=== PATIENT | female | born 1975 | race Caucasian/White ===

== ENCOUNTER 2022-07-28 02:04 | Inpatient (IN) ==
--- NOTE | 2022-07-28 02:41 | Emergency Department Note ---
Impression & Plan Acute hyperkalemia ADMIT ED Provider Note HPI: The patient is a 47-year-old female with history of end-stage renal disease, currently on dialysis, presents the emergency department chief complaint of generalized illness, nausea, myalgias, states that her symptoms have been ongoing since earlier today. Patient states that she missed her dialysis session on Tuesday because they had trouble accessing her left upper extremity fistula. She states she has been receiving dialysis through this fistula for about the past 6 months. Patient states the fistula was created in [place]. She gets her dialysis here locally through [facility]. On arrival here to the ED the patient appears well on my initial assessment, she is hemodynamically stable, saturating well on room air, patient is afebrile on arrival. ROS: -General: Generalized weakness -MSK: Myalgias -GI: Nausea *10 point review systems was conducted and is otherwise negative unless stated above *Outpatient medications and allergy history reviewed PE: General: Alert HEENT: Normocephalic, trachea midline Eyes: Extraocular eye movement is intact, no scleral erythema Pulmonary: Clear to auscultation bilaterally, no wheezing Cardio: Regular rate and rhythm GI: Abdomen is soft, nontender : No suprapubic tenderness MSK: No evidence of trauma or malformation of the extremities, no edema, palpable thrill in the left upper extremity fistula Skin: No evidence of rash Neuro: Alert, no focal deficits Psychiatric: Cooperative corporate associate attorney: - An order was placed for continuous cardiac monitoring - Patient was noted to be in sinus rhythm with a rate of 65 EKG: Rate: 115 Rhythm: Sinus tachycardia Intervals: Within normal limits ST changes: No ST elevation Time: 0238 Interventions provided in ED: -Albuterol, insulin, dextrose, Veltassa, Lasix, IV fluid bolus, calcium gluconate US OTHER - HEMODIALYSIS ACCESS: There is a right upper arm brachial artery to cephalic vein dialysis fistula. The brachial artery is patent superior and inferior to the anastomosis with an tegrade low resistance flow. There is a cephalic vein fistula is patent with peak systolic velocities measuring 578 cm/s, 293 cm/s, 613 cm/s, 664 cm/s, and 302 cm/s. No thrombus. Probable moderate stenosis of the main draining vein approximately 1.5 cm from the anastomosis. Consider fistulogram when clinically feasible. Radiologist: Dylan Burton MD Study ready at 05:17 and initial results transmitted at 05:27 Medical Decision Making: Patient presented to the emergency department with a feeling of generalized weakness, nausea, myalgias. She states she was unable to get her dialysis session performed on Tuesday secondary to difficulty with her fistula site access. She is visiting from [place] and is getting dialysis arranged through [facility]. IV was established, patient was placed on casino attendant, lab work was obtained. Lab work shows multiple abnormalities consistent with the patient's end-stage renal disease including elevated creatinine at 13.46, anemia of 9.8, potassium resulted critically high at 9.4, EKG shows sinus rhythm. On my reassessment the patient is alert, she is resting comfortably in bed and she is hemodynamically stable. Heart rate is in the 70s on my reassessment. She d enies any chest pain or shortness of breath. She was initiated on hyperkalemia medications for correction including albuterol, calcium gluconate, insulin, dextrose, Lasix, Veltassa, and an IV fluid bolus. She states she does still make urine. I discussed the patient's case with on-call nephrology, Dr. Griffin, she is familiar with the patient. She states that they have had some difficulty acc essing her fistula several times throughout her stay here in the [facility], she states that they just recently started using her fistula prior to arrival here in [place] and therefore access has been tenuous at times. She is recommending placement of a temporary hemodialysis catheter and emergent arrangement of dialysis this morning once catheter is placed. I discussed placement of a temporary catheter with the patient, she is adamantly refusing this procedure. Patient states that they have accessed her fistula and she would prefer to be dialyzed through her fistula. I did explain to the patient that time is of the essence and that she does have a critical lab abnormality that can lead to an arrhythmia and . She expressed an understanding of this and stated that she had a complication when a catheter was placed in [place] that made her extremely ill secondary to hemorrhage and therefore she was adamant that she did not want to have to undergo this procedure again. She was explained again the risk of this as was her family at the bedside of should she go into an arrhythmia from hyperkalemia and she again expressed understanding. She states that she would like her fistula to be accessed and if this is unsuccessful then she would be in agreement to reconsider having a catheter placed. I did discuss this initially with the on- call ICU PA, Sonido Valverde, who was updated and aware of the plan. He did evaluate the patient at the bedside. He did discuss the patient's presentation with on-call ICU, Dr. Vazquez. I then discussed again with Dr. Griffin that the patient is refusing temporary hemodialysis catheter placement, she is aware, she is aware that now the plan will be for the fistula to be attempted for access and then if this fails the p atient will be in agreement for temporary hemodialysis catheter. Dr. Griffin request admission to the ICU so the patient can be dialyzed in the ICU and then if fistula cannot be accessed ICU staff can place a temporary hemodialysis catheter. I discussed all of the above with the on-call hospitalist for [facility], Dr. Holt, who was in agreement to admit the patient to the ICU for nephrology consultation, dialysis, and possibly hemodialysis catheter placement. Patient is in agreement to the above plan as is her family at the bedside and she was admitted in stable condition for further care. * CRITICAL CARE TIME: ( 65 ) minutes -Management of acute hyperkalemia requiring IV and oral medications for temporizing correction, discussion with subspecialty physicians including nephrology and medical staff for the intensive care unit, time spent at the be ide in discussion with the patient and family, interpretation of diagnostic studies, and arrangement of admission to the ICU Diagnosis: 1. Acute hyperkalemia 2. End-stage renal disease, on hemodialysis 3. Anemia 4. Uremia 5. Elevated creatinine 6. Hyponatremia, mild Disposition: Admission to ICU Maxi Pagan DO Emergency Medicine Past Med/Surg History Medical History (Updated 07/28/22 @ 07:00 by BETO Lockwood) ESRD (end stage renal disease) on dialysis Social History Smoking Status: Never smoker Hx Alcohol Use: No Hx Substance Use: No Preferred Language: Czech Communication Ability: Effective Blood Bank Worker Required: No Beliefs That Will Affect Care: None Current Living Situation: Spouse Feels Safe at Home: Yes Safety Concerns: Feels Safe At This Time Assistive Devices: Glasses Allergies Allergies Allergy/AdvReac Type Severity Reaction Status Date / Time No Known Allergies Allergy Unverified 07/28/22 02:33 Home Meds Home Medications Medication Instructions Recorded Confirmed Amlo-Denk 10 mg PO DIRECTED 07/28/22 07/28/22 Glycinorm 80 mg PO DIRECTED 07/28/22 07/28/22 Iron Tabs 200 mg PO DIRECTED 07/28/22 07/28/22 calcium carbonate 300 mg (750 mg) 300 mg PO DIRECTED PRN Gi Upset 07/28/22 07/28/22 chewable tablet (Tums) epoetin beta, methoxy peg 100 100 mcg subcut DIRECTED 07/28/22 07/28/22 mcg/0.3 mL injection syringe (Mircera) furosemide 40 mg tablet (Lasix) 40 mg PO DAILY 07/28/22 07/28/22 iron sucrose 100 mg iron/5 mL 100 mg IV DIRECTED 07/28/22 07/28/22 intravenous solution Results & Data (ED) Vital Signs Vital Signs - 24 hr 07/28/22 02:10 07/28/22 03:01 07/28/22 03:02 Temperature 36.5 C Temperature Source Temporal Artery Scan Pulse Rate 71 87 Pulse Rate [Apical] 87 Pulse Rate from SpO2 Sensor Pulse Rhythm Regular Pulse Rhythm [Apical] Regular Pulse Strength [Apical] Normal Respiratory Rate 20 18 18 Respiratory Effort / Characteristics Non-Labored Spontaneous Non-Labored Spontaneous Respiratory Depth Normal Normal Respiratory Pattern Regular Blood Pressure 137/79 Blood Pressure [Right Arm] 125/60 Blood Pressure Mean 98 Blood Pressure Mean [Right Arm] 81 Blood Pressure Position [Right Arm] Semi-fowlers Pulse Oximetry 98 96 98 Oxygen Delivery Method Room Air Room Air Room Air Oxygen Flow Rate Sepsis New/Unexplained Change in Mental Status N/A Sepsis Action Taken by Nursing No Action Required 07/28/22 05:19 07/28/22 05:00 07/28/22 05:07 Temperature Temperature Source Pulse Rate 56 L Pulse Rate [Apical] 115 H 115 H Pulse Rate from SpO2 Sensor Pulse Rhythm Pulse Rhythm [Apical] Regular Pulse Strength [Apical] Normal Respiratory Rate 20 18 24 Respiratory Effort / Characteristics Non-Labored Spontaneous Non-Labored Spontaneous Respiratory Depth Normal Respiratory Pattern Regular Blood Pressure Blood Pressure [Right Arm] 128/67 Blood Pressure Mean Blood Pressure Mean [Right Arm] 87 Blood Pressure Position [Right Arm] Semi-fowlers Pulse Oximetry 98 100 Oxygen Delivery Method Room Air Nebulizer Oxygen Flow Rate 7 Sepsis New/Unexplained Change in Mental Status Sepsis Action Taken by Nursing 07/28/22 05:30 07/28/22 05:41 07/28/22 05:41 Temperature Temperature Source Pulse Rate 56 L 116 H Pulse Rate [Apical] Pulse Rate from SpO2 Sensor 58 L Pulse Rhythm Pulse Rhythm [Apical] Pulse Strength [Apical] Respiratory Rate 19 17 Respiratory Effort / Characteristics Respiratory Depth Respiratory Pattern Blood Pressure 128/67 Blood Pressure [Right Arm] Blood Pressure Mean 87 Blood Pressure Mean [Right Arm] Blood Pressure Position [Right Arm] Pulse Oximetry 100 Oxygen Delivery Method Oxygen Flow Rate Sepsis New/Unexplained Change in Mental Status Sepsis Action Taken by Nursing 07/28/22 06:00 07/28/22 06:00 07/28/22 06:30 Temperature Temperature Source Pulse Rate 57 L Pulse Rate [Apical] Pulse Rate from SpO2 Sensor 59 L Pulse Rhythm Pulse Rhythm [Apical] Pulse Strength [Apical] Respiratory Rate 9 L Respiratory Effort / Characteristics Respiratory Depth Respiratory Pattern Blood Pressure 149/72 H 125/64 Blood Pressure [Right Arm] Blood Pressure Mean 97 84 Blood Pressure Mean [Right Arm] Blood Pressure Position [Right Arm] Pulse Oximetry 100 Oxygen Delivery Method Oxygen Flow Rate Sepsis New/Unexplained Change in Mental Status Sepsis Action Taken by Nursing 07/28/22 06:30 07/28/22 07:00 07/28/22 07:00 Temperature Temperature Source Pulse Rate 74 71 Pulse Rate [Apical] Pulse Rate from SpO2 Sensor 72 71 Pulse Rhythm Pulse Rhythm [Apical] Pulse Strength [Apical] Respiratory Rate 14 17 Respiratory Effort / Characteristics Respiratory Depth Respiratory Pattern Blood Pressure 120/63 Blood Pressure [Right Arm] Blood Pressure Mean 82 Blood Pressure Mean [Right Arm] Blood Pressure Position [Right Arm] Pulse Oximetry 99 97 Oxygen Delivery Method Oxygen Flow Rate Sepsis New/Unexplained Change in Mental Status Sepsis Action Taken by Nursing Laboratory Data Result diagrams: 07/28/22 02:45 07/28/22 04:14 Lab Results 07/28/22 07/28/22 07/28/22 Range/Units 02:45 02:45 02:45 WBC 7.81 (4.8-10.8) K/ul RBC 3.56 L (3.93-5.22) M/uL Hgb 9.8 L (12.0-16.0) g/dl Hct 30.0 L (34.1-44.9) % MCV 84.3 (80.0-100.0) fL MCH 27.5 (25.0-34.0) pg MCHC 32.7 (32.0-36.0) g/dL RDW Std Deviation 50.7 H (36.4-46.3) fL RDW Coeff of Renae 16.6 H (11.5-14.5) % Plt Count 199 (130-400) K/uL MPV 10.1 (9.4-12.3) fL Immature Gran % (Auto) 0.1 % Neut % (Auto) 75.0 % Lymph % (Auto) 16.6 % [place] % (Auto) 7.0 % Eos % (Auto) 0.9 % Baso % (Auto) 0.4 % Neut # (Auto) 5.85 (1.4-6.5) K/uL Lymph # (Auto) 1.30 (1.2-3.4) K/uL [place] # (Auto) 0.55 (0.24-0.82) K/uL Eos # (Auto) 0.07 (0-0.50) K/uL Baso # (Auto) 0.03 (0-0.2) K/uL Immature Gran # (Auto) 0.01 (0.00-0.02) K/uL PT 11.5 (9.0-12.0) Seconds INR 1.1 (0.9-1.1) APTT 29.0 (21.0-31.0) Seconds PTT Ratio 1.1 VBG pH (7.36-7.41) VBG pCO2 (38-50) mmHg VBG pO2 mmHg VBG HCO3 mmol/L VBG O2 Saturation % VBG Base Excess mEq/L Sodium 133 L (136-145) mmol/L Potassium TNP Chloride 93 L (98-107) mmol/L Carbon Dioxide 20 L (21-32) mmol/L Anion Gap 20 H (3-11) BUN 110 H (6-23) mg/dl Creatinine 13.46 H* (0.6-1.2) mg/dl Est Cr Clr Drug Dosing 4.6 ml/min Est GFR ( Amer) 3.4 ml/min Est GFR (Non-Af Amer) 2.9 ml/min BUN/Creatinine Ratio 8.2 L (10-20) Glucose 137 H (70-99(Fasting)) mg/dl Calcium 8.8 (8.5-10.1) mg/dl Total Bilirubin 0.5 (0.2-1.0) mg/dl AST 54 H (13-39) U/L ALT 56 H (7-52) U/L Alkaline Phosphatase 112 H (34-104) U/L Troponin I High Sens 14.9 H (0-14) pg/ml Total Protein 8.0 (6.0-8.3) gm/dl Albumin 3.9 (3.4-5.0) gm/dl Globulin 4.1 H (2.5-4.0) gm/dl Albumin/Globulin Ratio 1.0 (0.9-2) Lipase 94 H (11-82) U/L SARS-CoV-2 (PCR) (Negative) Influenza Type A (PCR) (Neg) Influenza Type B (PCR) (Neg) RSV (RT-PCR) (Neg) 07/28/22 07/28/22 07/28/22 Range/Units 02:48 04:14 06:26 WBC (4.8-10.8) K/ul RBC (3.93-5.22) M/uL Hgb (12.0-16.0) g/dl Hct (34.1-44.9) % MCV (80.0-100.0) fL MCH (25.0-34.0) pg MCHC (32.0-36.0) g/dL RDW Std Deviation (36.4-46.3) fL RDW Coeff of Renae (11.5-14.5) % Plt Count (130-400) K/uL MPV (9.4-12.3) fL Immature Gran % (Auto) % Neut % (Auto) % Lymph % (Auto) % [place] % (Auto) % Eos % (Auto) % Baso % (Auto) % Neut # (Auto) (1.4-6.5) K/uL Lymph # (Auto) (1.2-3.4) K/uL [place] # (Auto) (0.24-0.82) K/uL Eos # (Auto) (0-0.50) K/uL Baso # (Auto) (0-0.2) K/uL Immature Gran # (Auto) (0.00-0.02) K/uL PT (9.0-12.0) Seconds INR (0.9-1.1) APTT (21.0-31.0) Seconds PTT Ratio VBG pH 7.32 L (7.36-7.41) VBG pCO2 35 L (38-50) mmHg VBG pO2 57 mmHg VBG HCO3 18 mmol/L VBG O2 Saturation 83.5 % VBG Base Excess -7.3 mEq/L Sodium (136-145) mmol/L Potassium 9.4 H* Chloride (98-107) mmol/L Carbon Dioxide (21-32) mmol/L Anion Gap (3-11) BUN (6-23) mg/dl Creatinine (0.6-1.2) mg/dl Est Cr Clr Drug Dosing ml/min Est GFR ( Amer) ml/min Est GFR (Non-Af Amer) ml/min BUN/Creatinine Ratio (10-20) Glucose (70-99(Fasting)) mg/dl Calcium (8.5-10.1) mg/dl Total Bilirubin (0.2-1.0) mg/dl AST (13-39) U/L ALT (7-52) U/L Alkaline Phosphatase (34-104) U/L Troponin I High Sens (0-14) pg/ml Total Protein (6.0-8.3) gm/dl Albumin (3.4-5.0) gm/dl Globulin (2.5-4.0) gm/dl Albumin/Globulin Ratio (0.9-2) Lipase (11-82) U/L SARS-CoV-2 (PCR) NEGATIVE (Negative) Influenza Type A (PCR) Negative (Neg) Influenza Type B (PCR) Negative (Neg) RSV (RT-PCR) Negative (Neg) Administered Medications Sodium Bicarbonate 150 meq/ (Dextrose) 1,150 mls @ 290 mls/hr IV .[id number] STA Stop: 07/28/22 08:57 Last Admin: 07/28/22 05:42 Dose: 290 mls/hr Documented By: KMF Discontinued Medications Albuterol (Albuterol 0.5% Neb Soln 2.5 Mg/0.5 Ml Vial) 10 mg NEB NOW STA Stop: 07/28/22 05:01 Last Admin: 07/28/22 05:18 Dose: 10 mg Documented By: EML Dextrose (Dextrose 50% 50 Ml Syringe) 50 ml IV NOW STA Stop: 07/28/22 05:01 Last Admin: 07/28/22 05:12 Dose: 50 ml Documented By: MANOHAR Furosemide (Furosemide 40 Mg/4 Ml Vial) 40 mg IV ONE ONE Stop: 07/28/22 05:20 Last Admin: 07/28/22 05:24 Dose: 40 mg Documented By: MANOHAR Calcium Gluconate 1,000 mg/ (Dextrose) 60 mls @ 240 mls/hr IV ONCE STA Stop: 07/28/22 05:14 Last Infusion: 07/28/22 06:01 Dose: 0 mls/hr Documented By: Admin: 07/28/22 05:42 Dose: 240 mls/hr Documented By: MANOHAR Insulin Human Regular 10 units (/ Syringe) 9.9 mls @ 3 mls/sec IV ONE STA Stop: 07/28/22 05:01 Last Admin: 07/28/22 05:51 Dose: 3 mls/sec Documented By: MANOHAR Co-signed By: CANDELARIO Sodium Chloride (Nss 1000ml) 250 mls @ 999 mls/hr IV .Q16M ONE Stop: 07/28/22 05:34 Last Infusion: 07/28/22 06:01 Dose: 0 mls/hr Documented By: Admin: 07/28/22 05:28 Dose: 999 mls/hr Documented By: MANOHAR Insulin Human Regular (Novolin-R Insulin Per Unit Charge) Confirm Administered Dose 10 units .ROUTE .STK-MED ONE Stop: 07/28/22 05:52 Last Admin: 07/28/22 06:01 Dose: Not Given Documented By: MANOHAR Patiromer (Patiromer Calcium Sorbitex 8.4 Gm Pack) 8.4 gm PO NOW STA Stop: 07/28/22 05:01 Last Admin: 07/28/22 05:48 Dose: 8.4 gm Documented By: MANOHAR Imaging Data Radiologist's Impression: Hemodialysis Access Duplex US 07/28/22 02:36 US hemodialysis access CLINICAL HISTORY: Assess left upper extremity fistula patency COMPARISON STUDY: No previous studies for comparison. TECHNIQUE: Grayscale, color and duplex Doppler sonography of the left upper extremity AV fistula was performed. FINDINGS: A left upper extremity brachiocephalic fistula is present. The fistula is patent. No thrombus is identified. There is no adjacent hematoma. Elevated peak systolic velocity of 578 cm/s at the anastomosis is noted. An additional elevated velocity of 664 cm/s is noted 1.5 cm from the anastomosis. Underlying stenosis cannot be excluded. There is apparent narrowing of the fistula at this site. IMPRESSION: 1. Patent left upper extremity brachiocephalic fistula. No thrombus. No adjacent hematoma. 2. Elevated velocities at the anastomosis and 1.5 cm from the anastomosis, as de scribed above. Underlying stenosis cannot be excluded and this can be assessed with a fistulogram. ACT 112: Negative or not required by law. Electronically signed by: Oneal Womack M.D. 07/28/2022 7:07 AM Discharge Plan Visit Data Chief Complaint: Illness Stated Complaint: DIALYSIS PT-NAUSEA,VOMING,WEAKNESS ED Provider: Maxi Pagan Discharge Problem: Acute hyperkalemia Forms Stand Alone Forms: [facility] Prescriptions Prescriptions: No Action Amlo-Denk 10 mg PO DIRECTED furosemide [Lasix] 40 mg Tablet 40 mg PO DAILY calcium carbonate [Tums] 300 mg (750 mg) Tablet,Chewable 300 mg PO DIRECTED PRN (Reason: Gi Upset) iron sucrose 100 mg iron/5 mL Solution 100 mg IV DIRECTED Rx Instructions: administer over 30 mins Mircera 100 mcg/0.3 mL Syringe 100 mcg subcut DIRECTED Glycinorm 80 mg PO DIRECTED Rx Instructions: FOR DIABETES Iron Tabs 200 mg PO DIRECTED Referrals Referrals: PCP,NO [Primary Care Provider] -
[2022-07-28 03:02] LABS: Basophils # (auto) 0.03 K/uL (0-0.2); Basophils % (auto) 0.4 %; Eosinophils # (auto) 0.07 K/uL (0-0.50); Eosinophils % (auto) 0.9 %; Hemoglobin 9.8 g/dl (12.0-16.0); Immature Granulocytes # (auto) 0.01 K/uL (0.00-0.02); Immature Granulocytes % (auto) 0.1 %; Lymphocytes % (auto) 16.6 %; Mean Corpuscular Hemoglobin 27.5 pg (25.0-34.0); Mean Corpuscular Hgb Conc 32.7 g/dL (32.0-36.0); Mean Corpuscular Volume 84.3 fL (80.0-100.0); Mean Platelet Volume 10.1 fL (9.4-12.3); Monocytes # (auto) 0.55 K/uL (0.24-0.82); Neutrophils # (auto) 5.85 K/uL (1.4-6.5); Platelet Count 199 K/uL (130-400); RDW Coefficient of Variation 16.6 % (11.5-14.5); RDW Standard Deviation 50.7 fL (36.4-46.3); Red Blood Count 3.56 M/uL (3.93-5.22); White Blood Count 7.81 K/ul (4.8-10.8)
[2022-07-28 03:39] LABS: Influenza A virus by PCR Negative (Neg); Influenza B virus by PCR Negative (Neg); RSV by PCR Negative (Neg); SARS CoV2 RNA(COVID-19) Ceph NEGATIVE (Negative)
[2022-07-28 03:59] LABS: Alanine Aminotransferase 56 U/L (7-52); Albumin Level 3.9 gm/dl (3.4-5.0); Alkaline Phosphatase 112 U/L (34-104); Anion Gap 20 (3-11); Aspartate Aminotransferase 54 U/L (13-39); BUN Creatinine Ratio 8.2 (10-20); Bilirubin,Total 0.5 mg/dl (0.2-1.0); Blood Urea Nitrogen 110 mg/dl (6-23); Calcium 8.8 mg/dl (8.5-10.1); Carbon Dioxide 20 mmol/L (21-32); Chloride 93 mmol/L (98-107); Creatinine Clr Calc Pharmacy 4.6 ml/min; Est GFR (African American) 3.4 ml/min; Est GFR (Non-African American) 2.9 ml/min; Globulin 4.1 gm/dl (2.5-4.0); Glucose 137 mg/dl (70-99(Fasting)); Lipase 94 U/L (11-82); Sodium 133 mmol/L (136-145); Troponin I High Sensitivity 14.9 pg/ml (0-14)
[2022-07-28] MEDS ORDERED: PATIROMER CALCIUM SORBITEX 8.4 GM PACK PO STA (05:00)
[2022-07-28] MEDS ORDERED: DEXTROSE 50% 50 ML SYRINGE IV STA (05:00)
[2022-07-28] MEDS ORDERED: ALBUTEROL 0.5% NEB SOLN 2.5 MG/0.5 ML VIAL NEB STA (05:00)
[2022-07-28] MEDS ORDERED: STAT IV STA (05:00)
[2022-07-28] MEDS ORDERED: INSULIN HUMAN REGULAR PER UNIT 10 UNITS in SYRINGE 9.9 ML IV STA (05:00)
[2022-07-28] MEDS ORDERED: SODIUM BICARBONATE 8.4% 150 MEQ in DEXTROSE 5% 1,000 ML IV STA (05:00)
[2022-07-28] MEDS ORDERED: CALCIUM GLUCONATE 10% 1,000 MG in DEXTROSE 5% 50 ML IV STA (05:00)
[2022-07-28] MEDS ORDERED: FUROSEMIDE 40 MG/4 ML VIAL IV ONE (05:19)
[2022-07-28] MEDS ORDERED: SODIUM CHLORIDE 0.9% 1000ML 250 ML IV ONE (05:19)
[2022-07-28] MEDS ORDERED: NovoLIN-R INSULIN PER UNIT CHARGE ONE (05:51)
[2022-07-28 06:17] LABS: INR 1.1 (0.9-1.1); Partial Thromboplastin Ratio 1.1; Prothrombin Time 11.5 Seconds (9.0-12.0)
[2022-07-28 06:36] LABS: Base Excess VBG -7.3 mEq/L; HCO3 VBG 18 mmol/L; Oxygen Saturation VBG 83.5 %; PCO2 VBG 35 mmHg (38-50); PO2 VBG 57 mmHg; pH VBG 7.32 (7.36-7.41)
--- NOTE | 2022-07-28 07:00 | Critical Care Consultation ---
Date of Consultation July 28, 2022 Assessment & Plan (1) Acute hyperkalemia: Reason Critically Ill: 47-year-old female with ESRD on hemodialysis presents with acute hyperkalemia and metabolic acidosis after missing hemodialysis due to AV fistula malfunction. Patient now on bicarb drip and awaiting emergent dialysis. Neuro - [facility] ICU: Negative Cardiac - EKG with peaked T waves and frequent PVCs with bigeminy, due to hyperkalemia. QTc normal at 420. She does have mildly elevated troponin which suspect is due to renal failure but will trend. Should improve with treatment of underlying acidosis and hyperkalemia, as described below. No chest pain or palpitations. Continuous monitoring on telemetry Respiratory - No pulmonary disease. Currently maintaining oxygen saturation on room air. Patient was receiving albuterol treatment for hyperkalemia. Continuous monitoring on pulse ox GI - Patient does have mild transaminitis and elevated lipase and unsure if this is related to renal failure. Abdominal exam is benign. Monitor for now Low potassium diet RENAL/LYTES - ESRD/hyperkalemiacurrently HD dependent but missed dialysis session on Tuesday due to AV fistula malfunction. Now presents with potassium 9.4, creatinine 13, BUN 110, HCO3 20, anion gap 20 and peaked T waves on EKG with frequent PVCs. -Patient received insulin, albuterol, calcium, Veltassa, and was started on bicarb drip. -Plan to admit to ICU and undergo emergent dialysis this morning. Due to patient's request, will reattempt dialysis with current AV fistula and hold on HD catheter placement for now. -Nephrology consulted, appreciate recommendations -Repeat BMP and VBG pending - Oliguriccontinue with Lasix and monitor strict I's and O's ENDO - DM type IIcurrently euglycemic and hemoglobin A1c pending. Patient reports controlled type 2 diabetes and is currently on Glycinorm -Hold oral meds in favor of sliding scale -ICU hyperglycemic protocol HEME - H&H stable, monitor routine CBC ID - No indication for infectious process at this time LINES/IV ACCESS - Peripheral IVs, will attempt HD catheter if unable to use AV fistula for hemodialysis DVT PROPHYLAXIS - SCDs, heparin I have personally spent 45 minutes of critical care time in the direct management of this patient. This is a life/limb threatening event. This includes time spent evaluating patient, direct bedside care, chart review, placing orders, interpretation of diagnostic studies, discussion with consultants, patient, and family members, as well as other required patient management activities. This time is exclusive of all separately billable procedures, and teaching time and separate from and in addition to any other critical care service time. Thank you for allowing us to participate in the care of this patient. Please refer to my attending physician's documentation for any further recommendations. (2) ESRD (end stage renal disease) on dialysis: (3) High anion gap metabolic acidosis: (4) Dialysis AV fistula malfunction: (5) Multiple premature ventricular complexes: (6) Elevated troponin: (7) Diabetes mellitus: History of Present Illness History of Present Illness Patient is a 47-year-old female with end-stage renal disease requiring hemodialysis normally (M,W,F), who presents to the emergency department with weakness and chills. She states that she developed renal disease after having COVID 19 in September of this year and has been on hemodialysis since the summer. Patient started developing weakness yesterday and earlier in this morning started to develop chills and shivering. She is visiting from [place] and was scheduled to have dialysis session on Tuesday with [facility] in [place], but they were unable to access her fistula. Patient had new fistula placed 2 weeks ago which has been used for dialysis approximately 3 times. She was scheduled to reattempt dialysis today but decided to come into the ER due to her symptoms. Patient's lab work revealed significant hyperkalemia with potassium of 9. She received calcium, bicarb, albuterol, insulin and dextrose, and Veltassa. Nephrology consulted and patient to undergo emergent dialysis this morning. ICU team initially consulted for placement of HD cath, however patient is refusing due to a negative experience with HD cath placement in [place] in which she bled from her neck. As of now, plan is to admit to ICU for medical management while dialysis is pending. We will reattempt access and use of fistula via dialysis nurse. However, if unable to use fistula for dialysis the patient is willing to consent to a temporary HD cath. On evaluation the patient is alert and oriented x3. She reports symptoms of weakness and nausea with one episode of emesis prior to arrival to the ER. She reports chills and shivering since earlier this morning. She denies any recent illness, fevers, headache or dizziness, congestion or sore throat, cough, shortness of breath, chest pain or palpitations, abdominal pain, diarrhea, swelling in hands or feet, or changes in gait. She does report making small amounts of urine and does take Lasix. Patient to be transferred to ICU for further management at this time. Allergies Allergy/AdvReac Type Severity Reaction Status Date / Time No Known Allergies Allergy Unverified 07/28/22 02:33 Home Medications Medication Instructions Recorded Confirmed Type Amlo-Denk 10 mg PO DIRECTED 07/28/22 07/28/22 History Glycinorm 80 mg PO DIRECTED 07/28/22 07/28/22 History Iron Tabs 200 mg PO DIRECTED 07/28/22 07/28/22 History calcium carbonate 300 mg (750 mg) 300 mg PO DIRECTED PRN Gi Upset 07/28/22 07/28/22 History chewable tablet (Tums) epoetin beta, methoxy peg 100 100 mcg subcut DIRECTED 07/28/22 07/28/22 History mcg/0.3 mL injection syringe (Mircera) furosemide 40 mg tablet (Lasix) 40 mg PO DAILY 07/28/22 07/28/22 History iron sucrose 100 mg iron/5 mL 100 mg IV DIRECTED 07/28/22 07/28/22 History intravenous solution Patient History Medical History (Updated 07/28/22 @ 07:00 by BETO Lockwood) ESRD (end stage renal disease) on dialysis Social History Smoking Status: Never smoker Hx Alcohol Use: No Hx Substance Use: No Preferred Language: Indian Communication Ability: Effective State Editor Required: No Beliefs That Will Affect Care: None Current Living Situation: Spouse Feels Safe at Home: Yes Safety Concerns: Feels Safe At This Time Assistive Devices: Glasses Review of Systems Review of Systems: All systems reviewed & are unremarkable except as noted in HPI & below Physical Exam Constitutional: cooperative and comfortable; no acute distress Eyes: PERRL, conjunctivae normal, anicteric sclerae ENMT: external ear and nose normal, oropharynx normal Neck: trachea midline, no thyromegaly Respiratory: normal respiratory effort, lungs clear to auscultation Cardiovascular: RRR, no murmur, no edema Vessels: no JVD Extremities: normal capillary refill; no edema Gastrointestinal (Abdomen): normal bowel sounds, soft, nontender, no hepatosplenomegaly Musculoskeletal: no cyanosis or clubbing, extremities motor strength 5/5 Skin: no rashes, warm and dry Neurologic: PERRL, EOMI, accommodation nl, no face palsy, no dysarthria Psychiatric: A+Ox3, euthymic affect Results & Data Results & Data ([facility]) Vital Signs (Past 12 Hours) Vital Signs Temp Pulse Pulse Resp BP BP Pulse Ox 07/28/22 05:00 115 H 18 128/67 100 07/28/22 05:19 115 H 20 98 07/28/22 03:02 87 18 125/60 98 07/28/22 03:01 87 18 96 07/28/22 02:10 36.5 C 71 20 137/79 98 O2 Del Method O2 Flow Rate 07/28/22 05:00 Nebulizer 7 07/28/22 05:19 Room Air 07/28/22 03:02 Room Air 07/28/22 03:01 Room Air 07/28/22 02:10 Room Air Coding Level of Care Code Critical Care 1st 30-74 mins Diagnoses Acute hyperkalemia E87.5 ESRD (end stage renal disease) on dialysis N18.6; Z99.2 High anion gap metabolic acidosis E87.29 Dialysis AV fistula malfunction T82.590A Multiple premature ventricular complexes I49.3 Elevated troponin R77.8 Diabetes mellitus E11.9
--- NOTE | 2022-07-28 07:09 | Ultrasound Report ---
US hemodialysis access CLINICAL HISTORY: Assess left upper extremity fistula patency COMPARISON STUDY: No previous studies for comparison. TECHNIQUE: Grayscale, color and duplex Doppler sonography of the left upper extremity AV fistula was performed. FINDINGS: A left upper extremity brachiocephalic fistula is present. The fistula is patent. No thromb us is identified. There is no adjacent hematoma. Elevated peak systolic velocity of 578 cm/s at the a nastomosis is noted. An additional elevated velocity of 664 cm/s is noted 1.5 cm from the anastomosis . Underlying stenosis cannot be excluded. There is apparent narrowing of the fistula at this site. IMPRESSION: 1. Patent left upper extremity brachiocephalic fistula. No thrombus. No adjacent hematoma. 2. Elevated velocities at the anastomosis and 1.5 cm from the anastomosis, as described above. Underl killian stenosis cannot be excluded and this can be assessed with a fistulogram. ACT 112: Negative or not required by law. Electronically signed by: Oneal Womack M.D. 07/28/2022 7:07 AM
--- NOTE | 2022-07-28 07:38 | XRay Report ---
XR chest 1V portable CLINICAL HISTORY: Chest pain, nonspecific COMPARISON STUDY: No previous studies for comparison. FINDINGS: There is moderate elevation of the right hemidiaphragm. No pneumothorax or pleural effusion is noted. Mild cardiomegaly is present. Mild interstitial thickening is noted. No consolidation is n oted. There is no pneumothorax. There is a trace left pleural effusion. IMPRESSION: 1. Mild cardiomegaly. Pulmonary vascular congestion with possible mild pulmonary edema. Trace left pl eural effusion. 2. Moderate elevation of the right hemidiaphragm. ACT 112: Negative or not required by law. Electronically signed by: Oneal Womack M.D. 07/28/2022 7:36 AM
--- NOTE | 2022-07-28 07:52 | Nephrology Consultation ---
Date of Consultation July 28, 2022 Assessment & Plan (1) Acute hyperkalemia: In ER pt had 10 units IV insulin, amp D50, albuterol , 40 mg IV lasix, 8.4 gm veltassa; also had 1 gm calcium and started on bicarb gtt K on recheck is 7.4 Continue efforts for urgent dialysis as above cont cardiac cath lab technologist (2) Dialysis AV fistula malfunction: pulling clot repeatedly and challenges cannulating >> w/ possible stenosis on u/s. this pt has had 3 of 5 scheduled treatments only since arrival to OP facility d/t repeated access issues. recommended establishing access immediately w/ temporary catheter and then evaluating AVF later once K in safe range. pt has had bad experiences in the past with temp lines/permanent catheters and refuses to have temp line evaluation at least until after we attempt to cannulate AVF. She understands that this refusal may cause delay in providing life saving procedure and may result in injury /longer hospital stay/ potentially . >attempt to cannulate AVF >pt states she will consider temp dialysis access if AVF cannot be cannulated >needs vascular consultation irregardless of whether we cannulate today successfully -vascular surgery consult placed > unfortunately vascular surgeon is out of hospital through holiday; favor attempting eval at [facility] / interventional radiology for fistulagram and for TDC placement if needed; favor temp cath today if unable to complete 2 hrs tx but will follow tile edger able to cannulate AVF successfully though she has extremely high venous pressures (in 400s) and not clear how long she will run at this; venous needle flushes but no aspiration at start of tx (3) ESRD (end stage renal disease) on dialysis: as OP she dialyzes 3hrs and only 2 days weekly; tells me she voids daily but makes spoonfuls of urine at most; has missed 2 of 5 scheduled txs -4 hr tx today, 1st 2 h on 1K, 2nd 2h on 2K; 2K hep bolus, 600/hr; no epo; goal UF up to 1L keep sbp > 100 concern for mild volume overload > low threshold to d/c bicarb gtt -reeval for need for further tx in am History of Present Illness Reason for Consultation: Hyperkalemia, AVF malfunction, ESRD Requesting Physician: Dr Holt Attending Physician: Dr Pagan History of Present Illness 47 y/o F w/ ESRD on 2X weekly HD whom I'm asked to see for hyperkalemia, AVF malfunction, dialysis needs is being admitted this morning to ICU after presenting w/ K 9.4. PMH includes longstanding DM1, HTN diagnosed summer 2021, ESRD diagnosed December 2021 w/ start on HD 2021. her AVF was created in April 2022. Pt ran w/ what sound like temporary lines until then, though some of these treatments were as outpatient. She had several temporary lines in her neck and both groins. She lives in [place] w/ her and is here visiting her sister. She dialyzes as a visiting pt under my care at [facility]: she came to us dialyzing 2 days a week for 3hr/tx. She presented on 07/14 for her first tx but could not run b/c of pulling clots from access and infiltration on attempt to ac cess it. She had 3 successful txs : 07/16, 07/19, 07/23 using AVF. OP labs from 07/16 show hgb 12.1 and K 4.7. She presented for tx on 07/26 but team was again unable to cannulate and pulled clots from her access. She was advised to come back to reattempt cannulation today. However she became acutely ill overnight w/ n/v and generalized weakness and presented to ER for evaluation w/ K as above, creat 13.4. ongoing N and generalized weakness. no response to lasix so far. no f/c, no sick contacts, no diarrhea or edema. Allergies Allergy/AdvReac Type Severity Reaction Status Date / Time No Known Allergies Allergy Unverified 07/28/22 02:33 Home Medications Medication Instructions Recorded Confirmed Type Amlo-Denk 10 mg PO DIRECTED 07/28/22 07/28/22 History Glycinorm 80 mg PO DIRECTED 07/28/22 07/28/22 History Iron Tabs 200 mg PO DIRECTED 07/28/22 07/28/22 History calcium carbonate 300 mg (750 mg) 300 mg PO DIRECTED PRN Gi Upset 07/28/22 07/28/22 History chewable tablet (Tums) epoetin beta, methoxy peg 100 100 mcg subcut DIRECTED 07/28/22 07/28/22 History mcg/0.3 mL injection syringe (Mircera) furosemide 40 mg tablet (Lasix) 40 mg PO DAILY 07/28/22 07/28/22 History iron sucrose 100 mg iron/5 mL 100 mg IV DIRECTED 07/28/22 07/28/22 History intravenous solution Patient History Medical History (Updated 07/28/22 @ 08:47 by Rasheeda Romero MD, PhD) Diabetes mellitus ESRD (end stage renal disease) on dialysis HTN (hypertension) Surgical History (Updated 07/28/22 @ 08:47 by Rasheeda Romero MD, PhD) AVF (arteriovenous fistula) Social History Smoking Status: Never smoker Hx Alcohol Use: No Hx Substance Use: No Preferred Language: Polish Communication Ability: Effective Work Station Support Specialist Required: No Beliefs That Will Affect Care: None Current Living Situation: Spouse Feels Safe at Home: Yes Safety Concerns: Feels Safe At This Time Assistive Devices: Glasses Review of Systems Review of Systems: All systems reviewed & are unremarkable except as noted in HPI & below Physical Exam Constitutional: well developed, well nourished and cooperative; no acute distress Eyes: EOM intact bilaterally ENMT: Ears: no external ear abnormality Nose: no external nose abnormality Mouth: + dry oral mucous membranes Neck: no nuchal rigidity Respiratory: normal respiratory effort Auscultation: + diminished lung sounds and + crackles (fine diffuse post guardado) Cardiovascular: Rate/Rhythm: regular rate and regular rhythm Extremities: + AV fistula (+ t/b, proximal induration); no edema Gastrointestinal (Abdomen): Inspection/Auscultation: normal bowel sounds P ercussion/Palpation: abdomen soft; abdomen nontender Musculoskeletal: Extremities: strength 5/5 throughout Skin: no rashes, warm and dry Neurologic: holcomb, fluent speech, no tremor Psychiatric: Orientation: oriented x 3 Results & Data ([facility]) Vital Signs (Past 12 Hours) Vital Signs Temp Pulse Pulse Resp BP BP Pulse Ox 07/28/22 07:00 71 17 97 07/28/22 07:00 120/63 07/28/22 06:30 74 14 99 07/28/22 06:30 125/64 07/28/22 06:00 57 L 9 L 100 07/28/22 06:00 149/72 H 07/28/22 05:41 128/67 07/28/22 05:41 116 H 17 100 07/28/22 05:30 56 L 19 07/28/22 05:07 56 L 24 07/28/22 05:00 115 H 18 128/67 100 07/28/22 05:19 115 H 20 98 07/28/22 03:02 87 18 125/60 98 07/28/22 03:01 87 18 96 07/28/22 02:10 36.5 C 71 20 137/79 98 O2 Del Method O2 Flow Rate 07/28/22 07:00 07/28/22 07:00 07/28/22 06:30 07/28/22 06:30 07/28/22 06:00 07/28/22 06:00 07/28/22 05:41 07/28/22 05:41 07/28/22 05:30 07/28/22 05:07 07/28/22 05:00 Nebulizer 7 07/28/22 05:19 Room Air 07/28/22 03:02 Room Air 07/28/22 03:01 Room Air 07/28/22 02:10 Room Air Laboratory Results 07/28/22 02:45 chem panel reviewed Diagnostic Findings cxr 1. Mild cardiomegaly. Pulmonary vascular congestion with possible mild pulmonary edema. Trace left pleural effusion. 2. Moderate elevation of the right hemidiaphragm. HD Access u/s FINDINGS: A left upper extremity brachiocephalic fistula is present. The fistula is patent. No thrombus is identified. There is no adjacent hematoma. Elevated peak systolic velocity of 578 cm/s at the anastomosis is noted. An additional elevated velocity of 664 cm/s is noted 1.5 cm from the anastomosis. Underlying stenosis cannot be excluded. There is apparent narrowing of the fistula at this site. IMPRESSION: 1. Patent left upper extremity brachiocephalic fistula. No thrombus. No adjacent hematoma. 2. Elevated velocities at the anastomosis and 1.5 cm from the anastomosis, as described above. Underlying stenosis cannot be excluded and this can be assessed with a fistulogram. ECG reviewed; low voltage; ? R axis; no peaked Ts or markedly widened QRS; final read pending
[2022-07-28 08:12] LABS: BUN Creatinine Ratio 8.6 (10-20); Calcium 8.3 mg/dl (8.5-10.1); Creatinine Clr Calc Pharmacy 4.7 ml/min; Est GFR (African American) 3.4 ml/min; Potassium 7.4 mmol/L (3.5-5.1)
[2022-07-28] MEDS ORDERED: SODIUM CHLORIDE 0.9% 1000ML 1,000 ML IV PRN (08:19)
[2022-07-28] MEDS ORDERED: HEPARIN SOD (PORCINE) 1000 UNIT/ML IV ONE (08:24)
[2022-07-28 08:41] LABS: Estimated Average Glucose 157 mg/dl; Hemoglobin A1C 7.1 % (4.5-5.6)
--- NOTE | 2022-07-28 08:46 | History and Physical Report ---
DATE OF ADMISSION: 07/28/2022. CHIEF COMPLAINT: Weakness, hyperkalemia. HISTORY OF PRESENT ILLNESS: This is a 47-year-old female with past medical history significant for end-stage renal disease, on hemodialysis, diabetes, hypertension. The patient says that she had COVID in September of this year and since then she developed renal failure and since last January-February, she is on dialysis. She is from [facility]. She is visiting [place] for [place]. She came on around first week of July and she is getting dialysis through [facility] here. She has a fistula and she is receiving dialysis through the fistula currently. The patient comes here because of complaints of generalized illness, weakness, nausea, myalgias since 1 day duration. In the ER, she was found to have a potassium of 9.4, sodium of 133, creatinine of 13.4, glucose of 137. The patient received insulin with dextrose, calcium gluconate, IV Lasix and nebs and veltassa in the ER. Currently, she is also started on bicarbonate drip. ER spoke to nephrology who also knows the patient from [facility], they thought that the fistula was not working properly, so Nephro wanted to place a tunneled catheter for dialysis, but the patient seemed to have refused it because she had a bad experience with it before. She wanted to try the fistula first, so the plan is to try the fistula first and if it does not work, then the patient is okay for catheter. Resting comfortably, hemodynamically stable. She had some headache and neck pain before, but currently resolved. No blurred visions, no earache, no runny nose, no sore throat, no cough, no fevers. Appetite is okay. Denies any chest pain, no shortness of breath, no abdominal pain currently. Normal bowel movements, no blood in stools or black stools. She says she makes little urine, but no blood in the urine. Otherwise, ambulating okay. ALLERGIES: No known drug allergies. PAST MEDICAL HISTORY: As mentioned above. PAST SURGICAL HISTORY: Hysterectomy, cataract surgeries, stent in the right leg. MEDICATIONS: The patient is on Amlo-Denk 10 mg as directed, calcium carbonate Tums 500 mg p.r.n., Epoetin 100 mcg as directed, Lasix 40 mg p.o. daily, Glycinorm 80 mg as directed, iron tablets as directed. FAMILY HISTORY: Significant for diabetes in the family. SOCIAL HISTORY: Denies smoking. No alcohol. REVIEW OF SYSTEMS: As per HPI. Rest of review of systems is negative. PHYSICAL EXAMINATION: GENERAL: The patient is of moderate build, not in acute distress. VITAL SIGNS: Temperature 36.5, pulse 115, respiratory rate 20, blood pressure 128/67, oxygen 98% on room air. HEENT: Pupils equal, round and reactive to light. Oral mucosa moist. NECK: No JVD, no neck masses. CARDIOVASCULAR: S1 and S2 heard. Tachycardia. No murmurs. RESPIRATORY SYSTEM: Normal AP diameter. No accessory muscle use. No wheezing, no crackles. ABDOMEN: Soft, bowel sounds present, no distention, nontender. CENTRAL NERVOUS SYSTEM: Alert and oriented. Speech is clear. No facial droop. Insight is okay. Obeys simple commands. Moves extremities. EXTREMITIES: No edema, no erythema. LABORATORY DATA: WBC 7.8, hemoglobin 9.8, hematocrit 30.0, platelets 199. PT 11.5, INR 1.1, APTT 29. Venous blood gas, pH of 7.32, pCO2 of 35. Sodium 133, potassium 9.4, chloride 93, bicarbonate 20, BUN 110, creatinine 13.4, serum glucose 137, calcium 8.8, total bilirubin 0.5, AST 54, ALT 56, alkaline phosphatase 112. Troponin I high sensitivity 14.9. Lipase 94. SARS-CoV-2 PCR negative. Influenza A and B PCR negative. RSV PCR negative. IMAGING: Chest x-ray: No acute findings. EKG: Sinus tachycardia with first-degree AV block with frequent PVCs in the pattern of bigeminy, at a rate of 115. ASSESSMENT AND PLAN: This is a 47-year-old female who presents with weakness, nausea, myalgias, found to have hyperkalemia. 1. Hyperkalemia. The patient has end-stage renal disease, on hemodialysis. It seems the fistula is possibly not working properly. She got insulin-dextrose, calcium gluconate, Lasix, albuterol and vetasaa and currently on bicarbonate drip. Nephrology was notified by the Emergency Room, plan for emergent dialysis soon. Follow the repeat laboratories. Closely monitor in the intensive care unit. 2. End-stage renal disease, on hemodialysis. Plan for dialysis now.If fistula not working plan for placement of catheter. 4. Diabetes. Hold her home medication, place her on insulin sliding scale, follow HbA1c level. Glycemic pharmacy consult. 5. Hypertension. The patient she has hypertension, currently seems to be not on any medication except Lasix, we will continue. We will monitor the blood pressure. 6. Deep venous thrombosis prophylaxis, sequential compression devices for now in case of plan for any procedures. DISPOSITION: Closely monitor in the ICU. Level 1, full code. Expect to discharge home and follow with family doctor. Job ID: [id number] [facility]
[2022-07-28] MEDS ORDERED: GLUCOSE 40% GEL 15 GM TUBE PO PRN (09:03)
[2022-07-28] MEDS ORDERED: CARBOHYDRATES FOR HYPOGLYCEMIA PO PRN (09:03)
[2022-07-28] MEDS ORDERED: FUROSEMIDE 40 MG TAB PO SCH (09:03)
[2022-07-28] MEDS ORDERED: GLUCAGON FOR INJ 1 MG VIAL SQ PRN (09:03)
[2022-07-28] MEDS ORDERED: ICU Protocol for HYPERglycemia SCH (09:03)
[2022-07-28] MEDS ORDERED: GLUCOSE 10 TAB/TUBE PO PRN (09:03)
[2022-07-28] MEDS ORDERED: DEXTROSE 50% 50 ML SYRINGE IV PRN (09:03)
[2022-07-28] MEDS ORDERED: PHARMACY GLYCEMIC MGMT CONSULT PRN (09:03)
--- NOTE | 2022-07-28 10:37 | Communication Note ---
Date of Service: July 28, 2022 Critical CARE addendum: 47-year-old female with past medical history of end-stage renal disease on hemodialysis, diabetes, hypertension presented to hospital because of nausea and vomiting. Patient was unable to get dialysis on Tuesday as the fistula was not working on the left arm. Hypotension when she presented was 9.4 she did get Veltassa along with hyperkalemia cocktail. Repeat potassium was 7.4. Patient did not want dialysis catheter to be placed before another trial of dialysis from the fistula as she had a bad experience from the dialysis catheter last time. Dialysis nurse did come in and try to do dialysis but it was not working well. I spoke with the patient in front of the patient's and friend regarding the risk of not having a dialysis catheter which include sudden from the potassium elevation. She understood and was agreeable to have the procedure done. At the time of examination patient was not in any respiratory distress. She denied any chest pain, no headache, no blurry vision. Nausea and vomiting had resolved. No fever or chills at home Constitutional: No acute distress HEENT: EOMI, PERRLA Respiratory system: Good air entry bilaterally, no wheeze, no rhonchi, no crackles CVS: S1-S2 positive, no murmurs or gallops Abdomen: Soft, nontender, nondistended, positive bowel sounds x4 Extremities: +2 pulses bilaterally radialis/ dorsalis pedis, no cyanosis, no edema, left arm AV fistula Neuro: Awake alert oriented x3 Psych: Normal mood and affect G/U: No Amezcua Plan: I will put Shiley catheter in the right IJ. Patient will get hemodialysis as soon as it is in. Ultimately patient will be transferred to [place] for permacath placement as we do not have vascular surgery this week. Continue with bicarb lila Case was discussed with hospitalist as well as Dr. Griffin I have personally spent additional 37 minutes of critical care time in the direct management of this patient. This is a life/limb threatening event. This includes time spent evaluating patient, direct bedside care, chart review, placing orders, interpretation of diagnostic studies, discussion with consultants, patient, and family members, as well as other required patient management activities. This time is exclusive of all separately billable procedures, and teaching time and separate from and in addition to any other critical care service time. Please note the above document was generated using voice recognition software. It may contain grammatical, syntax or spelling errors. Coding Level of Care Code Critical Care ea addt'l 30 min Comment [id number] and [id number]
--- NOTE | 2022-07-28 10:38 | Procedure Note ---
Procedure Note Date of Service July 28, 2022 Note Procedure: Inserting ultrasound-guided dialysis catheter Curriculum And Instruction Specialist: Dr. Cornelius Vazquez Indication: Hyperkalemia with AV fistula not working Consent: Signed by patient and verified with timeout prior to procedure. Anesthesia: 1% lidocaine without epinephrine local. Procedure: Consent was verified and timeout performed. Appropriate imaging studies were reviewed prior to the procedure. Under aseptic and sterile condition, right IJ vein was accessed under direct ultrasound guidance. Guidewire was confirmed to be within the lumen of vein with the help of ultrasound. Catheter was introduced via Seldinger technique. Guide a wire was removed. Good non-pulsatile blood flow was appreciated from all the ports. The catheter was placed at 13 cm and sutured in place. BioPatch was applied to the catheter and a sterile Tegaderm dressing was applied over the catheter with careful attention to sterility. Lung sliding was appreciated post procedure with the help ultrasound. Chest x-ray to follow Patient tolerated the procedure well. Blood loss: Less than 2 cc Complications: None Coding CPT Codes Tubes, Drains, and Vasc Access - Tubes, Drains, and Vasc Access: [id number] Insertion of cannula for hemodialysis ([id number]) Tubes, Drains, and Vasc Access - Tubes, Drains, and Vasc Access: [id number] Ultrasound Guidance For Vascular ([id number]) [facility] [place] Procedure Codes (Charges) Tubes, Drains, and Vasc Access Procedure 1: Tubes, Drains, and Vasc Access: [id number] Insertion of cannula for hemodialysis Procedure 2: Tubes, Drains, and Vasc Access: [id number] Ultrasound Guidance For Vascular
[2022-07-28] MEDS: INSULIN ASPART PER UNIT SC SCH ×4 (10:43→19:27)
--- NOTE | 2022-07-28 10:48 | XRay Report ---
XR chest 1V portable HISTORY: line placement COMPARISON: Chest 07/28/2022. FINDINGS: Interval placement of a right jugular central venous catheter with the tip terminating in e xpected location of the superior cavoatrial junction. No pneumothorax. No pleural fusions. The heart remains mildly enlarged. There is mild central pulmonary vascular congestion without overt edema. Thi s remains unchanged. Mild elevation of the right hemidiaphragm, unchanged. IMPRESSION: 1. Right jugular central venous catheter terminates at the expected location of the superior cavoatri al junction. 2. No pneumothorax. 3. No change in the cardiomegaly and mild pulmonary vascular congestion. ACT 112: Negative or not required by law. Electronically signed by: Lorenzo Quinn M.D. 07/28/2022 10:47 AM
--- NOTE | 2022-07-28 11:35 | Hospitalist Progress Note ---
Date of Service July 28, 2022 Assessment & Plan (1) Acute hyperkalemia: Plan: - likely related to malfunctioning AV fistula in left forearm and not able to get full HD over last week - ? peaked T waves on ECG - no chest pain, palpitations - K 9.4 on admission - received medical therapy overnight - K to 7.4 on repeat - ICU admission - RIJ shiley placed by ICU team for HD today (2) ESRD (end stage renal disease) on dialysis: Plan: - will need fistulogram of left arm fistula as not functioning and cannot tolerate HD through fistula at this time - RIJ shiley placed as above - HD today due to hyperkalemia - transfer initiated to [facility] for IR eval with fistulogram and possible tunneled catheter placement if needed - no vascular surgery at [facility] through holidays - post-HD labs (3) High anion gap metabolic acidosis: Plan: - due to incomplete HD as above - on bicarb drip until HD - emergent HD as above - monitor on repeat labs (4) Diabetes mellitus: Plan: - SSI for now - pharmacy glycemic consult placed - FSG AC+HS - diabetic diet (5) HTN (hypertension): Plan: - not on medications at this time - normotensive - monitor Plan DVT ppx: heparin SC Code Status: Full code Dispo: ICU Jameson Oquendo MD [facility] Medicine Admission and Anticipated Discharge Date Admission Date: July 28, 2022 Subjective Patient with ESRD on HD, DM, HTN presented with fatigue, found to have K 9.4 with ECG changes, given medical treatment. Left forearm fistula for HD but was not able to tolerate HD through fistula. Temporary Shiley placed in right IJ by ICU. Transfer to [facility] initiated for IR eval for fistulogram and possible tunneled catheter placement. Patient feels fatigued but otherwise denies chest pain, palpitations, shortness of breath, n/v/d, abdominal pain, cough, fever or chills. Review of Systems Review of Systems: All systems reviewed & are unremarkable except as noted in Subjective Physical Exam Physical Exam: GENERAL: The patient is of moderate build, not in acute distress. HEENT: Pupils equal, round and reactive to light. Oral mucosa moist. NECK: No JVD, no neck masses. CARDIOVASCULAR: S1 and S2 heard. RRR. No murmurs. RESPIRATORY SYSTEM: Normal AP diameter. No accessory muscle use. No wheezing, no crackles. ABDOMEN: Soft, bowel sounds present, no distention, nontender. CENTRAL NERVOUS SYSTEM: Alert and oriented. Speech is clear. No facial droop. Insight is okay. Obeys simple commands. Moves extremities. EXTREMITIES: No edema, no erythema. Left forearm fistula with HD access catheters in place - swelling of the fistula site, no drainage or erythema Results & Data Results & Data ([facility]) Vital Signs (Past 12 Hours) Vital Signs Temp Pulse Pulse Pulse Resp BP BP 07/28/22 09:30 132/70 07/28/22 09:15 130/65 07/28/22 09:05 137/65 07/28/22 08:46 36.6 C 70 07/28/22 09:15 68 3 L 07/28/22 09:15 130/65 07/28/22 09:05 68 13 07/28/22 09:05 137/65 07/28/22 09:00 69 21 07/28/22 09:00 138/62 07/28/22 08:45 70 13 07/28/22 08:45 138/67 07/28/22 08:40 69 13 07/28/22 08:40 137/63 07/28/22 08:38 70 24 07/28/22 08:15 70 19 07/28/22 09:00 36.6 C 07/28/22 08:00 72 21 07/28/22 08:00 124/66 07/28/22 07:30 69 26 H 07/28/22 07:30 115/65 07/28/22 08:00 07/28/22 07:00 71 17 07/28/22 07:00 120/63 07/28/22 06:30 74 14 07/28/22 06:30 125/64 07/28/22 06:00 57 L 9 L 07/28/22 06:00 149/72 H 07/28/22 05:41 128/67 07/28/22 05:41 116 H 17 07/28/22 05:30 56 L 19 07/28/22 05:07 56 L 24 07/28/22 05:00 115 H 18 128/67 07/28/22 05:19 115 H 20 07/28/22 03:02 87 18 125/60 07/28/22 03:01 87 18 07/28/22 02:10 36.5 C 71 20 137/79 Pulse Ox O2 Del Method O2 Flow Rate 07/28/22 09:30 07/28/22 09:15 07/28/22 09:05 07/28/22 08:46 07/28/22 09:15 98 07/28/22 09:15 07/28/22 09:05 98 07/28/22 09:05 07/28/22 09:00 96 07/28/22 09:00 07/28/22 08:45 96 07/28/22 08:45 07/28/22 08:40 96 07/28/22 08:40 07/28/22 08:38 07/28/22 08:15 98 07/28/22 09:00 07/28/22 08:00 98 07/28/22 08:00 07/28/22 07:30 94 07/28/22 07:30 07/28/22 08:00 Room Air 07/28/22 07:00 97 07/28/22 07:00 07/28/22 06:30 99 07/28/22 06:30 07/28/22 06:00 100 07/28/22 06:00 07/28/22 05:41 07/28/22 05:41 100 07/28/22 05:30 07/28/22 05:07 07/28/22 05:00 100 Nebulizer 7 07/28/22 05:19 98 Room Air 07/28/22 03:02 98 Room Air 07/28/22 03:01 96 Room Air 07/28/22 02:10 98 Room Air Diagnostic Findings Laboratory Results WBC 7.81 K/ul (4.8-10.8) 07/28/22 02:45 RBC 3.56 M/uL (3.93-5.22) L 07/28/22 02:45 Hgb 9.8 g/dl (12.0-16.0) L 07/28/22 02:45 Hct 30.0 % (34.1-44.9) L 07/28/22 02:45 MCV 84.3 fL (80.0-100.0) 07/28/22 02:45 MCH 27.5 pg (25.0-34.0) 07/28/22 02:45 MCHC 32.7 g/dL (32.0-36.0) 07/28/22 02:45 RDW Std Deviation 50.7 fL (36.4-46.3) H 07/28/22 02:45 RDW Coeff of Renae 16.6 % (11.5-14.5) H 07/28/22 02:45 Plt Count 199 K/uL (130-400) 07/28/22 02:45 MPV 10.1 fL (9.4-12.3) 07/28/22 02:45 Immature Gran % (Auto) 0.1 % 07/28/22 02:45 Neut % (Auto) 75.0 % 07/28/22 02:45 Lymph % (Auto) 16.6 % 07/28/22 02:45 Jones % (Auto) 7.0 % 07/28/22 02:45 Eos % (Auto) 0.9 % 07/28/22 02:45 Baso % (Auto) 0.4 % 07/28/22 02:45 Neut # (Auto) 5.85 K/uL (1.4-6.5) 07/28/22 02:45 Lymph # (Auto) 1.30 K/uL (1.2-3.4) 07/28/22 02:45 Jones # (Auto) 0.55 K/uL (0.24-0.82) 07/28/22 02:45 Eos # (Auto) 0.07 K/uL (0-0.50) 07/28/22 02:45 Baso # (Auto) 0.03 K/uL (0-0.2) 07/28/22 02:45 Immature Gran # (Auto) 0.01 K/uL (0.00-0.02) 07/28/22 02:45 PT 11.5 Seconds (9.0-12.0) 07/28/22 02:45 INR 1.1 (0.9-1.1) 07/28/22 02:45 APTT 29.0 Seconds (21.0-31.0) 07/28/22 02:45 PTT Ratio 1.1 07/28/22 02:45 VBG pH 7.32 (7.36-7.41) L 07/28/22 06:26 VBG pCO2 35 mmHg (38-50) L 07/28/22 06:26 VBG pO2 57 mmHg 07/28/22 06:26 VBG HCO3 18 mmol/L 07/28/22 06:26 VBG O2 Saturation 83.5 % 07/28/22 06:26 VBG Base Excess -7.3 mEq/L 07/28/22 06:26 Sodium 132 mmol/L (136-145) L 07/28/22 07:14 Potassium 7.4 mmol/L (3.5-5.1) H* D 07/28/22 07:14 Chloride 92 mmol/L (98-107) L 07/28/22 07:14 Carbon Dioxide 21 mmol/L (21-32) 07/28/22 07:14 Anion Gap 19 (3-11) H 07/28/22 07:14 BUN 113 mg/dl (6-23) H 07/28/22 07:14 Creatinine 13.15 mg/dl (0.6-1.2) H* D 07/28/22 07:14 Est Cr Clr Drug Dosing 4.7 ml/min 07/28/22 07:14 Est GFR ( Amer) 3.4 ml/min 07/28/22 07:14 Est GFR (Non-Af Amer) 3.0 ml/min 07/28/22 07:14 BUN/Creatinine Ratio 8.6 (10-20) L 07/28/22 07:14 Glucose 248 mg/dl (70-99(Fasting)) H 07/28/22 07:14 POC Glucose 143 mg/dl (70-99) H 07/28/22 10:42 Estimat Average Glucose 157 mg/dl 07/28/22 02:45 Hemoglobin A1c 7.1 % (4.5-5.6) H 07/28/22 02:45 Calcium 8.3 mg/dl (8.5-10.1) L 07/28/22 07:14 Total Bilirubin 0.5 mg/dl (0.2-1.0) 07/28/22 02:45 AST 54 U/L (13-39) H 07/28/22 02:45 ALT 56 U/L (7-52) H 07/28/22 02:45 Alkaline Phosphatase 112 U/L (34-104) H 07/28/22 02:45 Troponin I High Sens 14.9 pg/ml (0-14) H 07/28/22 02:45 Total Protein 8.0 gm/dl (6.0-8.3) 07/28/22 02:45 Albumin 3.9 gm/dl (3.4-5.0) 07/28/22 02:45 Globulin 4.1 gm/dl (2.5-4.0) H 07/28/22 02:45 Albumin/Globulin Ratio 1.0 (0.9-2) 07/28/22 02:45 Lipase 94 U/L (11-82) H 07/28/22 02:45 Nasal Screen MRSA (PCR) Negative (Negative) 07/28/22 09:01 SARS-CoV-2 (PCR) NEGATIVE (Negative) 07/28/22 02:48 Influenza Type A (PCR) Negative (Neg) 07/28/22 02:48 Influenza Type B (PCR) Negative (Neg) 07/28/22 02:48 RSV (RT-PCR) Negative (Neg) 07/28/22 02:48 Impressions Hemodialysis Access Duplex US 07/28/22 02:36 US hemodialysis access CLINICAL HISTORY: Assess left upper extremity fistula patency COMPARISON STUDY: No previous studies for comparison. TECHNIQUE: Grayscale, color and duplex Doppler sonography of the left upper extremity AV fistula was performed. FINDINGS: A left upper extremity brachiocephalic fistula is present. The fistula is patent. No thrombus is identified. There is no adjacent hematoma. Elevated peak systolic velocity of 578 cm/s at the anastomosis is noted. An additional elevated velocity of 664 cm/s is noted 1.5 cm from the anastomosis. Underlying stenosis cannot be excluded. There is apparent narrowing of the fistula at this site. IMPRESSION: 1. Patent left upper extremity brachiocephalic fistula. No thrombus. No adjacent hematoma. 2. Elevated velocities at the anastomosis and 1.5 cm from the anastomosis, as described above. Underlying stenosis cannot be excluded and this can be assessed with a fistulogram. ACT 112: Negative or not required by law. Electronically signed by: Oneal Womack M.D. 07/28/2022 7:07 AM Chest X-Ray 07/28/22 10:26 XR chest 1V portable HISTORY: line placement COMPARISON: Chest 07/28/2022. FINDINGS: Interval placement of a right jugular central venous catheter with the tip terminating in expected location of the superior cavoatrial junction. No pneumothorax. No pleural fusions. The heart remains mildly enlarged. There is mild central pulmonary vascular congestion without overt edema. This remains unchanged. Mild elevation of the right hemidiaphragm, unchanged. IMPRESSION: 1. Right jugular central venous catheter terminates at the expected location of the superior cavoatrial junction. 2. No pneumothorax. 3. No change in the cardiomegaly and mild pulmonary vascular congestion. ACT 112: Negative or not required by law. Electronically signed by: Lorenzo Quinn M.D. 07/28/2022 10:47 AM Medications Administered Current Inpatient Medications Dextrose (Dextrose 50% 50 Ml Syringe) 25 - 50 ml IV UD PRN; Protocol PRN Reason: Hypoglycemia Protocol Stop: 08/27/22 09:02 Furosemide (Furosemide 40 Mg Tab) 40 mg PO DAILY [facility] Stop: 08/27/22 09:02 Last Admin: 07/28/22 10:43 Dose: 40 mg Glucagon (Glucagon For Inj 1 Mg Vial) 1 mg SQ UD PRN; Protocol PRN Reason: Hypoglycemia Protocol Stop: 08/27/22 09:02 Glucose (Glucose 40% Gel 15 Gm Tube) 15 - 30 gm PO UD PRN; Protocol PRN Reason: Hypoglycemia Protocol Stop: 08/27/22 09:02 Glucose (Glucose 10 Tab/Tube) 4 - 8 tab PO UD PRN; Protocol PRN Reason: Hypoglycemia Treatment Stop: 08/27/22 09:02 Sodium Chloride (Nss 1000ml) 1,000 mls @ 0 mls/hr IV .Q0M PRN PRN Reason: For Hemodialysis Use ONLY Stop: 07/28/22 14:18 Insulin Aspart (Insulin Aspart Per Unit) 0 units SC Q4 [facility] Stop: 08/27/22 09:19 Last Admin: 07/28/22 10:44 Dose: Not Given Miscellaneous (Carbohydrates For Hypoglycemia ) 15 - 30 gm PO UD PRN PRN Reason: Hypoglycemia Protocol Stop: 08/27/22 09:02 Miscellaneous Information (Pharmacy Glycemic Mgmt Consult) 1 each N/A UD PRN PRN Reason: Consult Stop: 08/27/22 09:02
[2022-07-28] MEDS: HEPARIN SOD (PORCINE) 1000 UNIT/ML IV SCH ×2 (12:29→12:30)
--- NOTE | 2022-07-28 13:03 | Pharmacy Report ---
Pharmacy Glycemic Short Note 2 - Date of Service July 28, 2022 - Glycemic Short BSG Results (Last 24 hours): 07/28/22 07/28/22 07/28/22 02:45 07:14 10:42 Glucose 137 H 248 H POC Glucose 143 H OUTPATIENT ANTIDIABETIC REGIMEN: * Glycinorm (sulfonylurea) * A1c 7.1% unreliable in the setting of HD ASSESSMENT: * Patient admitted with need for emergent dialysis * Hyperglycemic on lab draw this morning, however this was following an amp of D50 given in the ED with regular IV insulin for hyperkalemia * BSG on POC 143 mg/dL. Will start weight based stress of 2 novolog. Patient having emergent dialysis. Expect patient to transfer to [facility] [place]. * Monitor for additional insulin needs. PLAN FOR INPATIENT GLYCEMIC CONTROL: * Hold outpatient oral diabetes medications * Basal insulin * hold for now * Bolus insulin * NovoLog per scale ACHS or Q6hrs while NPO * Goal Range: Low 120 mg/dL - High 160 mg/dL * Correction Factor: 30 mg/dL/unit * Nutritional / Prandial insulin per carb ratio of 1 unit per 12 grams CHO consumed
[2022-07-28 16:17] LABS: Hematocrit (blood only) 24.6 % (34.1-44.9); Hemoglobin 8.3 g/dl (12.0-16.0)
--- NOTE | 2022-07-28 16:33 | Discharge Summary ---
Date of Service July 28, 2022 Admission HPI Per Admitting Provider This is a 47-year-old female with past medical history significant for end- stage renal disease, on hemodialysis, diabetes, hypertension. The patient says that she had COVID in September of this year and since then she developed renal failure and since last January-February, she is on dialysis. She is from [facility]. She is visiting [place] for [place]. She came on around first week of July and she is getting dialysis through [facility] here. She has a fistula and she is receiving dialysis through the fistula currently. The patient comes here because of complaints of generalized illness, weakness, nausea, myalgias since 1 day duration. In the ER, she was found to have a potassium of 9.4, sodium of 133, creatinine of 13.4, glucose of 137. The patient received insulin with dextrose, calcium gluconate, IV Lasix and nebs and veltassa in the ER. Currently, she is also started on bicarbonate drip. ER spoke to nephrology who also knows the patient from [facility], they thought that the fistula was not working properly, so Nephro wanted to place a tunneled catheter for dialysis, but the patient seemed to have refused it because she had a bad experience with it before. She wanted to try the fistula first, so the plan is to try the fistula first and if it does not work, then the patient is okay for catheter. Resting comfortably, hemodynamically stable. She had some headache and neck pain before, but currently resolved. No blurred visions, no earache, no runny nose, no sore throat, no cough, no fevers. Appetite is okay. Denies any chest pain, no shortness of breath, no abdominal pain currently. Normal bowel movements, no blood in stools or black stools. She says she makes little urine, but no blood in the urine. Otherwise, ambulating okay. Admission Exam Per Admitting Provider GENERAL: The patient is of moderate build, not in acute distress. VITAL SIGNS: Temperature 36.5, pulse 115, respiratory rate 20, blood pressure 128/67, oxygen 98% on room air. HEENT: Pupils equal, round and reactive to light. Oral mucosa moist. NECK: No JVD, no neck masses. CARDIOVASCULAR: S1 and S2 heard. Tachycardia. No murmurs. RESPIRATORY SYSTEM: Normal AP diameter. No accessory muscle use. No wheezing, no crackles. ABDOMEN: Soft, bowel sounds present, no distention, nontender. CENTRAL NERVOUS SYSTEM: Alert and oriented. Speech is clear. No facial droop. Insight is okay. Obeys simple commands. Moves extremities. EXTREMITIES: No edema, no erythema. Principal Diagnosis Hyperkalemia in setting of ESRD and malfunctioning fistula Discharge Exam GENERAL: The patient is of moderate build, not in acute distress. HEENT: Pupils equal, round and reactive to light. Oral mucosa moist. NECK: No JVD, no neck masses. CARDIOVASCULAR: S1 and S2 heard. RRR. No murmurs. RESPIRATORY SYSTEM: Normal AP diameter. No accessory muscle use. No wheezing, no crackles. ABDOMEN: Soft, bowel sounds present, no distention, nontender. CENTRAL NERVOUS SYSTEM: Alert and oriented. Speech is clear. No facial droop. Insight is okay. Obeys simple commands. Moves extremities. EXTREMITIES: No edema, no erythema. Left forearm fistula with HD access catheters in place - swelling of the fistula site, no drainage or erythema Discharge Data Allergies Allergy/AdvReac Type Severity Reaction Status Date / Time No Known Allergies Allergy Unverified 07/28/22 02:33 Consultations 07/28/22 05:47 Consult Endoscope Technician Routine 07/28/22 06:03 ED Decision to Admit Stat 07/28/22 08:42 Consult Vascular Surgery Routine 07/28/22 09:03 Consult Endoscope Technician Routine Consult Nephrology Routine 07/28/22 13:27 Burn CD for patient Stat Ordered Studies 07/28/22 02:36 US hemodialysis access Urgent 07/28/22 05:55 US point of care ultrasound Stat 07/28/22 09:41 US point of care ultrasound Urgent Hospital Course (1) Acute hyperkalemia: - likely related to malfunctioning AV fistula in left forearm and not able to get full HD over last week - ? peaked T waves on ECG - no chest pain, palpitations - K 9.4 on admission - received medical therapy overnight - K to 7.4 on repeat - ICU admission - RIJ shiley placed by ICU team for HD today - s/p HD after shiley placed - patient had some continued oozing at shiley insertion site that appeared to be controlled with compression dressing - will monitor for further bleeding - plan for transfer to [facility] for IR evaluation and possible fistulogram and likely tunneled catheter placement (2) ESRD (end stage renal disease) on dialysis: - will need fistulogram of left arm fistula as not functioning and cannot tolerate HD through fistula at this time - NAN dennis placed as above - HD today due to hyperkalemia - transfer to [facility] for IR eval with fistulogram and possible tunneled catheter placement if needed - no vascular surgery at [facility] through holidays - post-HD labs (3) High anion gap metabolic acidosis: - due to incomplete HD as above - on bicarb drip until HD - emergent HD as above - monitor on repeat labs (4) Diabetes mellitus: - SSI for now - pharmacy glycemic consult placed - FSG AC+HS - diabetic diet (5) HTN (hypertension): - not on medications at this time - normotensive - monitor Plan DVT ppx: heparin SC Code Status: Full code Dispo: ICU --> telemetry after HD Jameson Oquendo MD [facility] Medicine Total Time Total Time Spent Total Time Spent (In Minutes): 47 Total Time Includes: Examination of the Patient, Discharge Planning, Medication Reconciliation and Communication With Other Providers Discharge Plan Discharge Items Patient Disposition: Transfer Acute [facility] Reason For Visit: WEAKNESS Discharge Diagnosis: Hyperkalemia, HD fistula malfunction Activity: Resume your previous activity Non-emergency contact: Primary Care Provider and [employer] Call non-emergency contact if: you have any medication questions and your symptoms worsen Follow-up/Referrals: PCP,NO [Primary Care Provider] - Diet: Carb Consistent or DM2, Dialysis Renal and Heart Healthy Addtl Attending Provider Instructions: You presented with fatigue, found to have potassium level of 9.4, which is dangerously high. You were given medications to bring it down but ultimately needed dialysis. Your left arm fistula was not working properly and so a temporary catheter was placed in the right neck vein and you received dialysis here. You were accepted as a transfer to [facility] for evaluation by interventional radiology for fistulogram to assess what is wrong with the fistula and for possible tunneled (longer term) catheter placement if needed. Pending Studies at Discharge: No Stand-Alone Forms: My [employer] Skilled Items Patient informed of condition?: Yes DNR: No Discharge Level of Care: Other Communicable Disease: No Discharge Prognosis: Stable Lines: JACC Urinary Catheter: No Medications and DC Order Prescriptions: Continued Amlo-Denk 10 mg PO DIRECTED furosemide [Lasix] 40 mg Tablet 40 mg PO DAILY calcium carbonate [Tums] 300 mg (750 mg) Tablet,Chewable 300 mg PO DIRECTED PRN (Reason: Gi Upset) iron sucrose 100 mg iron/5 mL Solution 100 mg IV DIRECTED Rx Instructions: administer over 30 mins Mircera 100 mcg/0.3 mL Syringe 100 mcg subcut DIRECTED Glycinorm 80 mg PO DIRECTED Rx Instructions: FOR DIABETES Iron Tabs 200 mg PO DIRECTED Discharge Orders: Discharge Order (Routine); Ordered 07/28/22 Ordered By: Jameson Salgado/Other Patient Handouts: Managing Type 2 Diabetes Admission Data Admit Date/Time: 07/28/22 06:58 Attending Provider: Jameson Oquendo Admit Provider: Ean Holt Primary Care Provider: PCP,NO Other Providers: Cornelius Vazquez ; Ean Holt ; Donell Arana ; Rasheeda Romero
[2022-07-28 16:37] LABS: BUN Creatinine Ratio 6.4 (10-20); Calcium 8.3 mg/dl (8.5-10.1); Creatinine Clr Calc Pharmacy 11.8 ml/min; Est GFR (African American) 10.4 ml/min; Est GFR (Non-African American) 8.9 ml/min; Magnesium 2.1 mg/dl (1.7-2.4); Phosphorus 4.8 mg/dl (2.5-4.9); Potassium 3.9 mmol/L (3.5-5.1)
--- NOTE | 2022-07-29 23:38 | Electrocardiogram Report ---
Test Reason : Blood Pressure : / mmHG Vent. Rate : 057 BPM Atrial Rate : 057 BPM P-R Int : 216 ms QRS Dur : 108 ms QT Int : 468 ms P-R-T Axes : 066 101 075 degrees QTc Int : 457 ms Sinus bradycardia with 1st degree A-V block Possible Left atrial enlargement Rightward axis Low voltage QRS Septal infarct , age undetermined Abnormal ECG No previous ECGs available Confirmed by Vu Martin ([id number]) on 07/29/2022 11:38:11 PM Referred By: REFERRED SELF Confirmed By:Vu Martin
== END 2022-07-28 20:10 | disposition short-term general hospital (02) | DRG 314 ==
LOC: ED 02:04 → 1E 06:58
DX: Z99.2 Dependence on renal dialysis; E87.20 Acidosis, unspecified; Y82.8 Other medical devices associated with adverse incidents; Z86.16 Personal history of COVID-19; N18.6 End stage renal disease; E10.22 Type 1 diabetes mellitus with diabetic chronic kidney disease; I12.0 Hypertensive chronic kidney disease with stage 5 chronic kidney disease or end stage renal disease; E87.5 Hyperkalemia; T82.590A Other mechanical complication of surgically created arteriovenous fistula, initial encounter